=== PATIENT | male | born 1960 | race Caucasian/White ===

== ENCOUNTER 2018-09-07 10:29 | Emergency (ER) | payer OTHER ==
[~2018-09-07] VITALS: Ht 165.1 cm; Wt 65.8 kg
[~2018-09-07 10:29] MED LIST: BUPR100T4 PO; CLON2TAB PO
[2018-09-07 10:39] VITALS: BP 134/77
[2018-09-07] MEDS ORDERED: HYDROCODONE/APAP 10/325MG 1 EA TABLET ONE (11:13)
--- NOTE | 2018-09-07 11:22 | NUR ---
Patient discharged to home in stable condition. Written and verbal after care instructions given. Patient verbalizes understanding of instruction.
[2018-09-07] MEDS ORDERED: HYDROCODONE/APAP 10/325MG 1 EA TABLET PO ONE (11:30)
== END 2018-09-07 11:21 | disposition home or self-care (01) ==
LOC: ER 10:33
DX: K64.9 Unspecified hemorrhoids (principal); F32.9 Major depressive disorder, single episode, unspecified; F25.9 Schizoaffective disorder, unspecified; F17.200 Nicotine dependence, unspecified, uncomplicated; Z60.2 Problems related to living alone; Z79.899 Other long term (current) drug therapy
CPT/HCPCS: 99283; A4606

== ENCOUNTER 2018-09-08 13:19 | Emergency (ER) | payer MEDICARE, OTHER ==
--- NOTE | 2018-09-08 13:54 | NUR ---
CALLED IN [facility], NO ANSWER
== END 2018-09-08 14:19 | disposition left against medical advice (07) ==
LOC: ER 13:23
DX: Z53.21 Procedure and treatment not carried out due to patient leaving prior to being seen by health care provider (principal)

== ENCOUNTER 2018-09-11 11:58 | Emergency (ER) | payer MEDICARE ==
[~2018-09-11] VITALS: Ht 165.1 cm; Wt 67.1 kg
[2018-09-11 11:58] VITALS: BP 138/70
--- NOTE | 2018-09-11 12:32 | NUR ---
KYLAH RAO. AWARE
== END 2018-09-11 12:41 | disposition left against medical advice (07) ==
LOC: ER 12:02
DX: K64.9 Unspecified hemorrhoids (principal); F20.9 Schizophrenia, unspecified; F32.9 Major depressive disorder, single episode, unspecified; F17.200 Nicotine dependence, unspecified, uncomplicated; Z60.2 Problems related to living alone; Z79.899 Other long term (current) drug therapy
CPT/HCPCS: Z7502

== ENCOUNTER 2025-02-15 03:13 | Inpatient (IN) | payer MEDICARE, OTHER ==
[~2025-02-15] VITALS: Ht 167.6 cm; Wt 78.0 kg
[2025-02-15 04:10] LABS: PLATELET COUNT (AUTO) 264 K/uL (150-450); RED BLOOD CELL COUNT(AUTO) 4.65 MIL/uL (4.5-6.0); RED CELL DISTRIBUTION WIDTH 14.5 % (11.5-15.0); WHITE BLOOD COUNT (AUTO) 12.1 K/uL (4.3-11.0)
[2025-02-15 04:29] LABS: ASPARTATE AMINOTRANSFERASE 17 U/L (15-37); CALCIUM, SERUM 8.8 mg/dL (8.5-10.1); CREATININE 1.2 mg/dL (0.6-1.3); SODIUM SERUM 138 mmol/L (136-145); TOTAL PROTEIN, SERUM 7.3 g/dL (6.4-8.2); UREA NITROGEN, BLOOD 22 mg/dL (7-18)
[2025-02-15 04:35] LABS: ALCOHOL, BLOOD < 3 mg/dL (0-10)
[2025-02-15 04:54] LABS: APPEARANCE,URINE CLEAR (CLEAR); BLOOD, URINE 1+ Ery/uL (NEGATIVE); LEUKOCYTE ESTERASE ,URINE NEGATIVE (NEGATIVE); NITRITE, URINE NEGATIVE (NEGATIVE); UGLUCOSE NEGATIVE (NEGATIVE)
[2025-02-15 05:01] LABS: ADD URINE CULTURE NO; SQUAMOUS EPITHELIAL CELL,UR Few /HPF (None Seen)
[2025-02-15 05:04] LABS: AMPHETAMINE, URINE NEGATIVE (NEGATIVE); BARBITURATE, URINE NEGATIVE (NEGATIVE); BENZODIAZEPINE, URINE NEGATIVE (NEGATIVE); COCCAINE, URINE NEGATIVE (NEGATIVE); OPIATE, URINE NEGATIVE (NEGATIVE)
[2025-02-15 05:15] LABS: CANNABINOID, URINE POSITIVE (NEGATIVE)
[2025-02-15] MEDS ORDERED: ONDANSETRON HCL/PF 4 MG/2 ML VIAL ONE (05:21)
[2025-02-15] MEDS ORDERED: MORPHINE SULFATE INJ 2 MG/ML DISP.SYRIN ONE (05:22)
[2025-02-15] MEDS: MORPHINE SULFATE INJ 2 MG/ML DISP.SYRIN IV ONE (05:31)
[2025-02-15] MEDS: ONDANSETRON HCL/PF - ER 4 MG/2 ML VIAL IV ONE (05:31)
[2025-02-15 06:00] VITALS: TEMP 98.3
[2025-02-15] MEDS ORDERED: MORPHINE SULFATE INJ 2 MG/ML DISP.SYRIN IV PRN (08:00)
[2025-02-15] MEDS ORDERED: MAGNESIUM HYDROXIDE 30 ML UDC PO PRN (08:00)
[2025-02-15] MEDS ORDERED: Z GUARD REMEDY 4 OZ OINT TP PRN (08:00)
[2025-02-15] MEDS ORDERED: HYDROCODONE/APAP 5/325MG TABLET PO PRN (08:00)
[2025-02-15] MEDS ORDERED: ONDANSETRON HCL/PF 4 MG/2 ML VIAL IVP PRN (08:00)
[2025-02-15] MEDS ORDERED: ZOLPIDEM TARTRATE 5 MG TABLET PO PRN (08:00)
[2025-02-15] MEDS: ENOXAPARIN SODIUM 40 MG/0.4 ML DISP.SYRIN SQ SCH (08:00)
[2025-02-15] MEDS ORDERED: ACETAMINOPHEN 325 MG TABLET PO PRN (08:00)
[2025-02-15] MEDS ORDERED: MAG HYDROX/AL HYDROX/SIMETH 30 ML UDC PO PRN (08:00)
[2025-02-15] MEDS ORDERED: PARO10TA4 PO (08:19)
[2025-02-15] MEDS ORDERED: LORA-259 PO (08:19)
[2025-02-15] MEDS ORDERED: METO25TA4 PO (08:19)
[2025-02-15 08:47] VITALS: BP 136/90; O2SAT 97
[2025-02-15] MEDS: PANTOPRAZOLE 40 MG VIAL IV SCH (10:51)
[2025-02-15] MEDS: IV D5/0.45 NACL 1,000 ML IV PRN (10:56)
== END 2025-02-15 19:36 | disposition home or self-care (01) | DRG 395 ==
LOC: ER 03:15 → MED 08:36
PROVIDERS: ADMIT Student in an Organized Health Care Education/Training Program; ATTEND Student in an Organized Health Care Education/Training Program
DX: K40.30 Unilateral inguinal hernia, with obstruction, without gangrene, not specified as recurrent (principal); F25.9 Schizoaffective disorder, unspecified; F17.210 Nicotine dependence, cigarettes, uncomplicated; F31.9 Bipolar disorder, unspecified; D72.829 Elevated white blood cell count, unspecified; F32.A Depression, unspecified; R73.9 Hyperglycemia, unspecified
CPT/HCPCS: 36415; 80053-TC; 81001; 83690-TC; 85025-TC; A4223; G0378; G0480; J2270; J2405; J2470; J3490